=== PATIENT | male | born 1980 | race Caucasian/White ===

== ENCOUNTER 2022-06-10 23:05 | Emergency (ER) | payer SELFPAY ==
[~2022-06-10] VITALS: Ht 175.3 cm; Wt 99.8 kg
[2022-06-10 23:06] VITALS: BP 160/55
--- NOTE | 2022-06-10 23:10 | NUR ---
PT BIBA BLS ER BED 12
--- NOTE | 2022-06-10 23:13 | NUR ---
PT IN GOWN ON BEDSIDE MONITOR
--- NOTE | 2022-06-10 23:23 | NUR ---
RAD AT BEDSIDE
--- NOTE | 2022-06-10 23:42 | NUR ---
PATIENT AMBULATED TO WITH STEADY GAIT
[2022-06-11] MEDS ORDERED: BACITRACIN OINT 500 UNITS/GM PKT TP ONE (00:05)
[2022-06-11] MEDS ORDERED: SULF-59 PO (00:35)
[2022-06-11] MEDS ORDERED: cefTRIAXone 500 MG in LIDOCAINE MPF 1% 1 ML IM ONE (00:40)
[2022-06-11] MEDS ORDERED: cefTRIAXone 500 MG VIAL ONE (00:41)
--- NOTE | 2022-06-11 00:59 | NUR ---
Patient discharged with v/s stable. Written and verbal after care instructions given and explained. Patient verbalized understanding. Ambulatory with steady gait. All questions addressed prior to discharge. Advised to follow up with PMD.
== END 2022-06-11 00:58 | disposition home or self-care (01) ==
LOC: MED 23:05
DX: L03.115 Cellulitis of right lower limb (principal)
CPT/HCPCS: 73630; 90471; 90715; 96372; 99284; J0696; Q0092

== ENCOUNTER 2022-06-12 22:23 | Emergency (ER) | payer SELFPAY ==
[~2022-06-12] VITALS: Ht 198.1 cm; Wt 99.8 kg
[~2022-06-12 22:23] MED LIST: SULF-59 PO
--- NOTE | 2022-06-12 22:26 | NUR ---
PT BROUGHT TO BED 7 VIA LUPE BALDWIN
[2022-06-12 22:27] VITALS: BP 149/90
--- NOTE | 2022-06-12 22:36 | NUR ---
Dr. Rey examining patient.
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
[2022-06-12 23:31] VITALS: BP 133/77
== END 2022-06-12 23:33 | disposition home or self-care (01) ==
LOC: MED 22:23
DX: H92.01 Otalgia, right ear (principal)
CPT/HCPCS: 99283

== ENCOUNTER 2022-06-13 17:54 | Emergency (ER) | payer SELFPAY ==
[~2022-06-13] VITALS: Ht 175.3 cm; Wt 99.8 kg
[2022-06-13 17:55] VITALS: BP 148/99
--- NOTE | 2022-06-13 20:30 | NUR ---
LAB ATTEMPTED TO DRAW LABS, PT SLEEPING.
--- NOTE | 2022-06-13 21:15 | NUR ---
JAVED FROM LAB ATTEMPTED TO DRAW LABS [id number]. WOKE PT UP, PT STATES YES TO DRAWING LABS, DOES NOT ALLOW JAVED TO DRAW LABS, PULLS ARM AWAY AND GOES BACK TO SLEEP Addendum: 06/13/22 at 2119 by [email or web address] SILVIA VELAZQUEZ MADE AWARE.
--- NOTE | 2022-06-13 21:27 | NUR ---
SPOKE TO PT AGAIN ABOUT COOPERATING WITH DOCTOR'S ORDERS, I EXPLAINED TO PT HE NEEDS TO STAY AWAKE WHILE LABS, STATES HE WILL TRY AGAIN. LAB MADE AWARE.
[2022-06-13 21:44] LABS: BASOPHILS % (AUTO) 0.5 % (0.0-2.0); EOSINOPHILS # (AUTO) 0.2 K/uL (0-0.4); EOSINOPHILS % (AUTO) 2.5 % (0.0-4.0); HEMATOCRIT 39.6 % (36-52); HEMOGLOBIN 13.3 g/dL (12.0-18.0); LYMPHOCYTES # (AUTO) 1.1 K/uL (2.0-11.5); LYMPHOCYTES % (AUTO) 14.7 % (20.5-51.1); MEAN CORPUSCULAR HEMOGLOBIN 31 pg (27-31); MEAN CORPUSCULAR HGB CONC 33 g/dL (33-37); MEAN CORPUSCULAR VOLUME 92.3 fL (80-94); MONOCYTES # (AUTO) 0.7 K/uL (0.8-1.0); MONOCYTES % (AUTO) 9.1 % (1.7-9.3); NEUTROPHILS # (AUTO) 5.3 K/uL (1.8-7.7); NEUTROPHILS % (AUTO) 73.2 % (42.2-75.2); PLATELET COUNT (AUTO) 265 K/uL (140-450); RED BLOOD CELL COUNT(AUTO) 4.29 MIL/uL (4.20-6.10); RED CELL DISTRIBUTION WIDTH 13.8 % (11.6-13.7); WHITE BLOOD COUNT (AUTO) 7.3 K/uL (4.8-10.8)
[2022-06-13 21:58] LABS: ALBUMIN 3.5 g/dL (3.4-5.0); CARBON DIOXIDE 28.1 mmol/L (21-32); CREATININE 0.7 mg/dL (0.6-1.3); POTASSIUM 4.1 mmol/L (3.5-5.1); TOTAL BILIRUBIN 0.2 mg/dL (0.0-1.0)
--- NOTE | 2022-06-13 23:34 | NUR ---
pt ambulatory to [facility]b
--- NOTE | 2022-06-13 23:57 | NUR ---
Dr. Elizabeth examining patient.
[2022-06-14 00:10] VITALS: BP 148/99
[2022-06-14] MEDS ORDERED: ACETAMINOPHEN 325 MG TAB PO ONE (00:10)
== END 2022-06-14 00:10 | disposition home or self-care (01) ==
LOC: MED 17:54
DX: R10.9 Unspecified abdominal pain (principal); M54.2 Cervicalgia; M54.50 Low back pain, unspecified
CPT/HCPCS: 36415; 80053; 83690; 85025; 99283

== ENCOUNTER 2022-06-17 12:51 | Emergency (ER) | payer SELFPAY ==
[~2022-06-17] VITALS: Ht 167.6 cm; Wt 76.7 kg
[2022-06-17 13:09] VITALS: BP 145/109
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
[2022-06-17 13:50] VITALS: BP 137/78
== END 2022-06-17 13:50 | disposition home or self-care (01) ==
LOC: MED 12:51
DX: F10.129 Alcohol abuse with intoxication, unspecified (principal); Z88.8 Allergy status to other drugs, medicaments and biological substances; Y90.9 Presence of alcohol in blood, level not specified
CPT/HCPCS: 99283